=== PATIENT | male | born 1955 | race Hispanic/Latino ===

== ENCOUNTER 2018-10-31 08:18 | Outpatient (CLI) | payer MEDICARE, OTHER | END 2018-10-31 08:19 | disposition home or self-care (01) | LOC: RAD 08:18 ==

== ENCOUNTER 2018-12-11 13:27 | Outpatient (CLI) | payer MEDICARE, OTHER | END 2018-12-11 13:28 | disposition home or self-care (01) | LOC: RAD 13:27 ==

== ENCOUNTER 2019-02-16 13:21 | Outpatient (CLI) | payer MEDICARE, OTHER | END 2019-02-16 13:22 | disposition home or self-care (01) | LOC: RAD 13:21 ==